=== PATIENT | female | born 1935 | race Caucasian/White ===

== ENCOUNTER 2017-01-02 08:05 | Emergency (ER) ==
[2017-01-02] MEDS: EPINEPHRINE 1:10,000 SYRINGE IV PRN ×2 (08:09→08:14)
[2017-01-02 08:28] VITALS: BP 0/0; TEMP 95.6; BMI 25.6
[2017-01-02] MEDS ORDERED: EPINEPHRINE 1:10,000 SYRINGE IV PRN (09:09)
--- NOTE | 2017-01-02 09:12 | ED.PDOC ---
General ED Provider: Dr. MARIA ESTHER DOMINGUEZ Chief Complaint: Cardiac Arrest Stated Complaint: Found by unresponsive on toilet seat; EMS called Time Seen by Physician: 08:05 Mode of Arrival: Ambulance Information Source: Family, EMT Primary Care Provider: [facility] [place] Nursing and Triage Documentation Reviewed and Agree: Yes Cardiac Resuscitation - Cardiac Resuscitation Onset/Duration: Unknown Witnessed Arrest: No Down-time Before BLS Initiated: Unknown Breathing Prehospital Findings: Reports: Apnea Circulation/Rhythm Prehospital Findings: Reports: Pulses absent, Asystole Disability/Neurological Prehospital Findings: Reports: Unresponsive Breathing Prehospital Intervention: Reports: Intubation (Kingsley LMA) Circulation/Rhythm Prehospital Intervention: Reports: Chest compressions, IV/IO placed, Epinephrine (X7 enroute) Airway Prehospital Response: Kingsley LMA Breathing Prehospital Response: Present: ETT in airway, Equal breath sounds (LMA ) Circulation/Rhythm Prehospital Response: Present: Pulses absent Breathing ED Findings: Present: Apnea Circulation/Rhythm ED Findings: Present: Pulses absent, Asystole Disability/Neurological ED Findings: Present: Unresponsive Breathing ED Intervention: ETT replaced (Kingsley LMA in place) Circulation/Rhythm ED Intervention: Chest compressions, Epinephrine (X3) Breathing ED Response: Equal breath sounds (With Kingsley LMA) Circulation/Rhythm ED Response: Present: Pulses absent, Asystole Right Pupil: Fixed, Size (mm) (6) Left Pupil: Fixed, Size (mm) (6) Review Of Systems: Unable due to extremis EMS/Code Sheet Reviewed: Yes Patient Has a Living Will: Yes (Unk) Resuscitation Successful: No Terminated At: 08:19 Preliminary Cause of : Cardiopulmonary Arrest Differential Diagnoses: Asystole, Sudden Past Medical History - Past Medical History Previously Healthy: No (Cardiac arrythmia) Endocrine: Reports: Unknown Cardiovascular: Reports: Other (Cardiac arrythmia) Respiratory: Reports: Unknown Hematological: Reports: Unknown Gastrointestinal: Reports: Unknown Genitourinary: Reports: Unknown Neuro/Psych: Reports: Unknown Musculoskeletal: Reports: Unknown Cancer: Reports: Unknown Last Menstrual Period: NA - Surgical History General Surgical History: Reports: Unknown - Family History Family History: Reports: Unknown - Social History Smoking Status: Never smoker Hx Substance Use: No Alcohol Screening: None Interpretation - Stonemason Helper Time of Stonemason Helper Interpretation: 08:10 (Asystoly) Critical Care Note - Critical Care Note Total Time (mins): 15 Course - Course Orders, Labs, Meds: Orders Category Date Time Status CPR - ED ONLY Stat CARDIO 01/02/17 09:16 Ordered ED DIRECTOR CORPORATE COMPLIANCE APPLIED .ONCE EMERGENCY 01/02/17 09:09 Inactive ED DIRECTOR CORPORATE COMPLIANCE APPLIED .ONCE EMERGENCY 01/02/17 09:16 Active ED IV/MEDIPORT/POWERPORT .ONCE EMERGENCY 01/02/17 09:09 Inactive ED IV/MEDIPORT/POWERPORT .ONCE EMERGENCY 01/02/17 09:16 Active 0.9 % Sodium Chloride [Saline Flush] MEDS 01/02/17 09:09 Discontinued 1 syr IVF PRN PRN 0.9 % Sodium Chloride [Saline Flush] MEDS 01/02/17 09:16 Ordered 1 syr IVF PRN PRN Epinephrine [Epinephrine 1:10,000 Syringe] MEDS 01/02/17 08:08 Ordered 1 mg IV PRN PRN Epinephrine [Epinephrine 1:10,000 Syringe] MEDS 01/02/17 09:09 Discontinued 1 mg IV PRN PRN Medications Generic Name Dose Route Start Last Admin Trade Name Freq PRN Reason Stop Dose Admin Epinephrine HCl 1 mg 01/02/17 08:08 01/02/17 08:14 Epinephrine 1:10,000 Syringe IV 1 mg PRN PRN Administration DIRECTED BY PHYSICIAN-CODE Sodium Chloride 1 syr 01/02/17 09:16 Saline Flush IVF PRN PRN To flush IV Discontinued Medications Generic Name Dose Route Start Last Admin Trade Name Freq PRN Reason Stop Dose Admin Epinephrine HCl 1 mg 01/02/17 09:09 Epinephrine 1:10,000 Syringe IV PRN PRN DIRECTED BY PHYSICIAN-CODE Sodium Chloride 1 syr 01/02/17 09:09 Saline Flush IVF PRN PRN To flush IV Vital Signs: Temp Pulse Resp BP Pulse Ox 01/02/17 08:05 95.6 F L 0 L 0 L 0/0 L 0 L Departure - Departure Time of Disposition: 08:19 Disposition: Discharge Problem: Cardiac arrest Condition: Pt referred to PMD for follow-up: No () Home Medications: Ambulatory Orders Rivaroxaban [Xarelto] PO DAILY 01/02/17
== END 2017-01-02 09:30 | disposition expired ==
LOC: ED 08:05
DX: I46.9 Cardiac arrest, cause unspecified (principal)
CPT/HCPCS: 96374; 99285